=== PATIENT | female | born 1990 | race Caucasian/White ===

== ENCOUNTER 2017-04-04 17:47 | Emergency (ER) | payer OTHER ==
[~2017-04-04] VITALS: Ht 157.4 cm; Wt 90.7 kg
[~2017-04-04 17:47] MED LIST: 'PARAFON FORTE500 M1 PO; AMOXICILLIN500 MG PO; BACTRIM DS 8001 TA1 PO; BIRTH CONTROL1 EAC1 PO; BUSPAR15 MG PO; CENA K20 MEQ/15 PO; CHILD'S CHEW1 CTB PO; CLEOCIN150 MG PO; ELIMITE 5%60 GM PO; FLONASE 0.05% 121 EA NAS; HYDROCODONE BIT1 T11 PO; K-Dur 20MEQ20 MEQ PO; MACROBID100 M1 PO; MOTRIN800 MG PO; NAPROSYN500 MG PO; NKHM; PENICILLIN VK500 MG PO; PERCOCET 325 MG1 TA2 PO; PRENATAL1 TA1 PO; PRENATAL1 TA3 PO; PRILOSEC20 MG PO; PROTONIX40 M1 IV; PYRIDIUM200 MG PO; RECLIPSEN PO; TRAMADOL HCL50 MG PO; TYLENOL325 M1 PO; TYLENOL325 M2 PO; ULTRAM50 MG PO; VICODIN 5/500 505 MG PO; ZITHROMAX Z PA250 MG PO; ZOFRAN ODT4 MG SL; ZOFRAN4 MG PO; ZOFRAN8 MG PO
[2017-04-04 18:12] LABS: BILIRUBIN NEGATIVE (NEGATIVE); BLOOD NEGATIVE (NEGATIVE); CLARITY CLEAR (CLEAR); COLOR YELLOW (YELLOW); GLUCOSE NEGATIVE (NEGATIVE); KETONE NEGATIVE (NEGATIVE); LEUKO ESTERASE NEGATIVE (NEGATIVE); NITRITE NEGATIVE (NEGATIVE); PH 6.5 (5.0-9.0)
[2017-04-04] MEDS ORDERED: ZOFRAN4 MG PO (18:28)
[2017-04-04 18:29] LABS: BACTERIA TRACE; HYALINE CAST 0-2; RBC 0-2 rbc/hpf (0-2); WBC 0-2 wbc/hpf (0-5)
== END 2017-04-04 20:53 | disposition home or self-care (01) ==
LOC: ED 17:47
PROVIDERS: Nurse Practitioner Family
DX: N91.2 Amenorrhea, unspecified (principal); R11.0 Nausea; F17.200 Nicotine dependence, unspecified, uncomplicated; Z98.890 Other specified postprocedural states; Z79.899 Other long term (current) drug therapy

== ENCOUNTER 2017-08-21 00:13 | Emergency (ER) | payer OTHER ==
[~2017-08-21] VITALS: Ht 157.4 cm; Wt 86.2 kg
[2017-08-21 00:18] VITALS: BP 132/78
[2017-08-21 00:42] LABS: BILIRUBIN NEGATIVE (NEGATIVE); BLOOD NEGATIVE (NEGATIVE); CLARITY SL CLOUDY (CLEAR); COLOR YELLOW (YELLOW); GLUCOSE NEGATIVE (NEGATIVE); KETONE TRACE (NEGATIVE); LEUKO ESTERASE NEGATIVE (NEGATIVE); NITRITE NEGATIVE (NEGATIVE); SPECIFIC GRAVITY 1.025 (1.005-1.030)
[2017-08-21 00:50] LABS: BACTERIA 2+; WBC 0-2 wbc/hpf (0-5)
== END 2017-08-21 01:03 | disposition home or self-care (01) ==
LOC: ED 00:13
PROVIDERS: Emergency Medicine Emergency Medical Services
DX: N91.1 Secondary amenorrhea (principal); F17.200 Nicotine dependence, unspecified, uncomplicated; Z79.899 Other long term (current) drug therapy

== ENCOUNTER → 2017-08-22 | Outpatient (CLI) | payer OTHER | END | disposition home or self-care (01) | LOC: LAB 17:24 | DX: B59 Pneumocystosis (principal) ==

== ENCOUNTER 2018-08-25 17:39 | Emergency (ER) | payer SELFPAY ==
[~2018-08-25] VITALS: Ht 157.4 cm; Wt 88.5 kg
[2018-08-25] MEDS ORDERED: AMOXICILLIN500 M2 PO (17:48)
[2018-08-25] MEDS ORDERED: FLONASE ALLERG9.9 ML NAS (17:48)
== END 2018-08-25 17:50 | disposition home or self-care (01) ==
LOC: ED 17:39
DX: J01.90 Acute sinusitis, unspecified (principal); F17.210 Nicotine dependence, cigarettes, uncomplicated; Z98.890 Other specified postprocedural states; Z79.899 Other long term (current) drug therapy

== ENCOUNTER 2018-10-17 16:38 | Emergency (ER) | payer SELFPAY ==
[~2018-10-17] VITALS: Ht 157.4 cm; Wt 88.5 kg
[~2018-10-17 16:38] MED LIST changes: +AMOXICILLIN500 M2 PO; +FLONASE ALLERG9.9 ML NAS
== END 2018-10-17 17:30 | disposition home or self-care (01) ==
LOC: ED 16:38
DX: N91.1 Secondary amenorrhea (principal); F17.200 Nicotine dependence, unspecified, uncomplicated; Z32.01 Encounter for pregnancy test, result positive

== ENCOUNTER 2018-10-27 18:34 | Emergency (ER) | payer SELFPAY ==
[~2018-10-27] VITALS: Ht 157.4 cm; Wt 88.5 kg
[2018-10-27 20:23] LABS: BILIRUBIN 1+ (NEGATIVE); BLOOD NEGATIVE (NEGATIVE); CLARITY CLOUDY (CLEAR); COLOR YELLOW (YELLOW); GLUCOSE NEGATIVE (NEGATIVE); KETONE TRACE (NEGATIVE); LEUKO ESTERASE NEGATIVE (NEGATIVE); NITRITE NEGATIVE (NEGATIVE); SPECIFIC GRAVITY >= 1.030 (1.005-1.030)
[2018-10-27 20:31] LABS: BACTERIA 1+; EPITHELIAL CELLS 16-20; MUCOUS 2+
== END 2018-10-27 20:29 | disposition home or self-care (01) ==
LOC: ED 18:34
PROVIDERS: Nurse Practitioner Family
DX: O26.891 Other specified pregnancy related conditions, first trimester (principal); R10.9 Unspecified abdominal pain; F17.200 Nicotine dependence, unspecified, uncomplicated; Z3A.01 Less than 8 weeks gestation of pregnancy; Z79.899 Other long term (current) drug therapy; Z98.890 Other specified postprocedural states; Z90.49 Acquired absence of other specified parts of digestive tract

== ENCOUNTER → 2019-01-10 | Outpatient (CLI) | payer OTHER | END | disposition home or self-care (01) | LOC: US 06:29 | DX: Z34.82 Encounter for supervision of other normal pregnancy, second trimester (principal); Z3A.16 16 weeks gestation of pregnancy ==

== ENCOUNTER → 2019-02-07 | Outpatient (CLI) | payer OTHER | END | disposition home or self-care (01) | LOC: LAB 15:59 | DX: Z03.89 Encounter for observation for other suspected diseases and conditions ruled out (principal); Z83.2 Family history of diseases of the blood and blood-forming organs and certain disorders involving the immune mechanism ==

== ENCOUNTER 2019-02-13 20:54 | Emergency (ER) | payer OTHER ==
[~2019-02-13] VITALS: Ht 157.4 cm; Wt 97.5 kg
[2019-02-13 21:14] LABS: BILIRUBIN 1+ (NEGATIVE); BLOOD NEGATIVE (NEGATIVE); CLARITY SL CLOUDY (CLEAR); COLOR ORANGE (YELLOW); GLUCOSE NEGATIVE (NEGATIVE); KETONE TRACE (NEGATIVE); LEUKO ESTERASE NEGATIVE (NEGATIVE); NITRITE NEGATIVE (NEGATIVE); SPECIFIC GRAVITY >= 1.030 (1.005-1.030)
[2019-02-13 21:26] LABS: BACTERIA 2+; EPITHELIAL CELLS 21-30; MUCOUS 1+; WBC 0-2 wbc/hpf (0-5)
== END 2019-02-13 22:20 | disposition home or self-care (01) ==
LOC: ED 20:54
PROVIDERS: Student in an Organized Health Care Education/Training Program
DX: O23.42 Unspecified infection of urinary tract in pregnancy, second trimester (principal); O20.0 Threatened abortion; Z3A.20 20 weeks gestation of pregnancy; Z79.899 Other long term (current) drug therapy; Z87.440 Personal history of urinary (tract) infections; Z87.442 Personal history of urinary calculi; Z90.49 Acquired absence of other specified parts of digestive tract; Z98.890 Other specified postprocedural states

== ENCOUNTER 2019-03-30 19:35 | Emergency (ER) | payer OTHER ==
[~2019-03-30] VITALS: Ht 157.4 cm; Wt 106.1 kg
[2019-03-30 20:06] LABS: BILIRUBIN 1+ (NEGATIVE); BLOOD NEGATIVE (NEGATIVE); CLARITY SL CLOUDY (CLEAR); COLOR YELLOW (YELLOW); GLUCOSE NEGATIVE (NEGATIVE); KETONE TRACE (NEGATIVE); LEUKO ESTERASE NEGATIVE (NEGATIVE); NITRITE NEGATIVE (NEGATIVE); PH 6.5 (5.0-9.0); SPECIFIC GRAVITY 1.025 (1.005-1.030)
[2019-03-30 20:15] LABS: BACTERIA 2+
[2019-03-30] MEDS ORDERED: AMOXICILLIN500 M2 PO (20:23)
[2019-03-30] MEDS ORDERED: ZYRTEC10 MG PO (20:23)
== END 2019-03-30 20:54 | disposition home or self-care (01) ==
LOC: ED 19:35
PROVIDERS: Nurse Practitioner Family
DX: O99.512 Diseases of the respiratory system complicating pregnancy, second trimester (principal); J01.90 Acute sinusitis, unspecified; Z3A.27 27 weeks gestation of pregnancy; Z79.899 Other long term (current) drug therapy

== ENCOUNTER → 2019-05-09 | Outpatient (CLI) | payer OTHER ==
[~2019-05-09] MED LIST changes: +ZYRTEC10 MG PO
== END | disposition home or self-care (01) ==
LOC: US 09:58
DX: Z34.83 Encounter for supervision of other normal pregnancy, third trimester (principal); Z3A.33 33 weeks gestation of pregnancy

== ENCOUNTER → 2019-05-18 | Outpatient (CLI) | payer OTHER | END | disposition home or self-care (01) | LOC: US 11:59 | DX: O99.810 Abnormal glucose complicating pregnancy (principal); Z3A.33 33 weeks gestation of pregnancy ==

== ENCOUNTER 2019-05-22 20:09 | Emergency (ER) | payer OTHER ==
[~2019-05-22] VITALS: Ht 157.4 cm; Wt 99.8 kg
== END 2019-05-22 21:00 | disposition home or self-care (01) ==
LOC: ED 20:09
DX: O41.93X0 Disorder of amniotic fluid and membranes, unspecified, third trimester, not applicable or unspecified (principal); Z3A.34 34 weeks gestation of pregnancy; Z79.2 Long term (current) use of antibiotics; Z79.899 Other long term (current) drug therapy; Z90.49 Acquired absence of other specified parts of digestive tract

== ENCOUNTER → 2019-05-25 | Outpatient (CLI) | payer OTHER | END | disposition home or self-care (01) | LOC: US 12:54 | DX: O99.810 Abnormal glucose complicating pregnancy (principal); Z3A.35 35 weeks gestation of pregnancy ==

== ENCOUNTER → 2019-05-30 | Outpatient (CLI) | payer OTHER | END | disposition home or self-care (01) | LOC: US 16:54 | DX: O24.419 Gestational diabetes mellitus in pregnancy, unspecified control (principal); Z3A.36 36 weeks gestation of pregnancy ==

== ENCOUNTER → 2019-06-06 | Outpatient (CLI) | payer OTHER | END | disposition home or self-care (01) | LOC: US 09:24 | DX: Z34.93 Encounter for supervision of normal pregnancy, unspecified, third trimester (principal); Z3A.37 37 weeks gestation of pregnancy ==

== ENCOUNTER → 2019-06-13 | Outpatient (CLI) | payer OTHER | END | disposition home or self-care (01) | LOC: US 10:09 | DX: O24.410 Gestational diabetes mellitus in pregnancy, diet controlled (principal); Z3A.37 37 weeks gestation of pregnancy ==

== ENCOUNTER → 2019-06-20 | Outpatient (CLI) | payer OTHER | END | disposition home or self-care (01) | LOC: US 09:22 | DX: Z34.93 Encounter for supervision of normal pregnancy, unspecified, third trimester (principal); Z3A.39 39 weeks gestation of pregnancy ==

== ENCOUNTER → 2019-06-23 | Outpatient (CLI) | payer OTHER | END | disposition home or self-care (01) | LOC: US 09:51 | DX: Z34.93 Encounter for supervision of normal pregnancy, unspecified, third trimester (principal); Z3A.39 39 weeks gestation of pregnancy ==

== ENCOUNTER 2019-07-24 03:37 | Emergency (ER) | payer OTHER ==
[~2019-07-24] VITALS: Ht 157.4 cm; Wt 107.0 kg
[2019-07-24] MEDS ORDERED: DIFLUCAN150 MG PO (04:05)
[2019-07-24] MEDS ORDERED: KEFLEX500 M1 PO (04:05)
== END 2019-07-24 04:37 | disposition home or self-care (01) ==
LOC: ED 03:37
DX: O86.00 Infection of obstetric surgical wound, unspecified (principal); Z90.49 Acquired absence of other specified parts of digestive tract; Z87.442 Personal history of urinary calculi; Z79.2 Long term (current) use of antibiotics; Z79.899 Other long term (current) drug therapy

== ENCOUNTER 2020-10-26 14:36 | Emergency (ER) | payer SELFPAY ==
[~2020-10-26] VITALS: Ht 157.4 cm; Wt 99.8 kg
[~2020-10-26 14:36] MED LIST changes: +DIFLUCAN150 MG PO; +KEFLEX500 M1 PO
[2020-10-26] MEDS ORDERED: FLONASE ALLERG9.9 ML NAS (16:20)
[2020-10-26] MEDS ORDERED: AMOXICILLIN500 M2 PO (16:20)
== END 2020-10-26 16:43 | disposition home or self-care (01) ==
LOC: ED 14:36
DX: J02.9 Acute pharyngitis, unspecified (principal); H66.93 Otitis media, unspecified, bilateral; Z79.899 Other long term (current) drug therapy; Z98.890 Other specified postprocedural states

== ENCOUNTER 2021-09-10 12:49 | Emergency (ER) | payer SELFPAY ==
[~2021-09-10] VITALS: Ht 157.4 cm; Wt 95.3 kg
[2021-09-10] MEDS ORDERED: ZYRTEC10 M2 PO (13:52)
[2021-09-10] MEDS ORDERED: FLONASE ALLERG9.9 ML NAS (13:52)
== END 2021-09-10 13:55 | disposition home or self-care (01) ==
LOC: ED 12:49
DX: B34.9 Viral infection, unspecified (principal); Z79.899 Other long term (current) drug therapy; Z98.890 Other specified postprocedural states; Z90.89 Acquired absence of other organs

== ENCOUNTER 2022-06-13 11:26 | Emergency (ER) | payer SELFPAY ==
[~2022-06-13] VITALS: Ht 157.4 cm; Wt 97.5 kg
[~2022-06-13 11:26] MED LIST changes: +ZYRTEC10 M2 PO
[2022-06-13] MEDS ORDERED: PAXLOVID 300-11 EAC2 PO (12:48)
== END 2022-06-13 13:44 | disposition home or self-care (01) ==
LOC: ED 11:26
DX: U07.1 COVID-19 (principal); Z79.899 Other long term (current) drug therapy; Z98.890 Other specified postprocedural states; Z90.89 Acquired absence of other organs

== ENCOUNTER 2022-12-02 21:13 | Emergency (ER) | payer OTHER ==
[~2022-12-02] VITALS: Ht 157.4 cm; Wt 95.3 kg
[~2022-12-02 21:13] MED LIST changes: +PAXLOVID 300-11 EAC2 PO
[2022-12-02 21:30] LABS: BILIRUBIN Negative (Negative); BLOOD Negative (Negative); CLARITY Clear (Clear); COLOR Yellow (Yellow); GLUCOSE Negative (Negative); KETONE Trace (Negative); LEUKO ESTERASE Negative (Negative); NITRITE Negative (Negative); PH 5.5 (4.5-8.0); SPECIFIC GRAVITY >= 1.030 (1.001-1.030)
[2022-12-02 21:35] LABS: BACTERIA 2+; MUCOUS 3+
== END 2022-12-02 22:50 | disposition home or self-care (01) ==
LOC: ED 21:13
PROVIDERS: Internal Medicine
DX: R11.0 Nausea (principal); Z98.890 Other specified postprocedural states; Z79.899 Other long term (current) drug therapy

== ENCOUNTER 2023-03-16 17:31 | Emergency (ER) | payer OTHER ==
[~2023-03-16] VITALS: Ht 157.4 cm; Wt 97.5 kg
[2023-03-16] MEDS ORDERED: CIPRO500 MG PO (17:59)
[2023-03-16 18:32] LABS: BILIRUBIN Negative (Negative); BLOOD 3+ (Negative); CLARITY Turbid (Clear); COLOR Orange (Yellow); GLUCOSE Negative (Negative); KETONE Negative (Negative); LEUKO ESTERASE 3+ (Negative); NITRITE Negative (Negative); PH 6.5 (4.5-8.0)
[2023-03-16 18:55] LABS: BACTERIA 2+; RBC TNTC rbc/hpf (0-2); WBC TNTC wbc/hpf (0-5)
[2023-03-16] MEDS ORDERED: SEPTDS PO ×2 (23:53)
[2023-03-17] MEDS ORDERED: PREDNISONE10 M1 PO (00:21)
== END 2023-03-16 18:20 | disposition home or self-care (01) ==
LOC: ED 17:31
PROVIDERS: Emergency Medicine
DX: N39.0 Urinary tract infection, site not specified (principal); Z79.899 Other long term (current) drug therapy; Z98.890 Other specified postprocedural states

== ENCOUNTER 2023-03-16 23:46 | Emergency (ER) | payer OTHER ==
[~2023-03-16 23:46] MED LIST changes: +CIPRO500 MG PO
[2023-03-16] MEDS ORDERED: SEPTDS PO ×2 (23:53)
[2023-03-17] MEDS ORDERED: PREDNISONE10 M1 PO (00:21)
== END 2023-03-17 00:29 | disposition home or self-care (01) ==
LOC: ED 23:46
DX: L29.9 Pruritus, unspecified (principal); T36.8X5A Adverse effect of other systemic antibiotics, initial encounter; Z98.890 Other specified postprocedural states; Y92.89 Other specified places as the place of occurrence of the external cause

== ENCOUNTER 2023-07-06 16:37 | Emergency (ER) | payer OTHER ==
[~2023-07-06] VITALS: Ht 157.4 cm; Wt 99.8 kg
[~2023-07-06 16:37] MED LIST changes: +PREDNISONE10 M1 PO; +SEPTDS PO
[2023-07-06 18:14] LABS: BILIRUBIN Negative (Negative); BLOOD 3+ (Negative); CLARITY Turbid (Clear); COLOR Orange (Yellow); GLUCOSE Negative (Negative); KETONE Negative (Negative); LEUKO ESTERASE 3+ (Negative); NITRITE Negative (Negative); SPECIFIC GRAVITY 1.025 (1.001-1.030)
[2023-07-06 18:29] LABS: PH >= 9.0 (4.5-8.0)
[2023-07-06 18:31] LABS: BACTERIA 1+; EPITHELIAL CELLS TNTC; RBC TNTC rbc/hpf (0-2); WBC TNTC wbc/hpf (0-5)
[2023-07-06] MEDS ORDERED: SEPTDS PO (19:37)
== END 2023-07-06 19:37 | disposition home or self-care (01) ==
LOC: ED 16:37
PROVIDERS: Emergency Medicine
DX: N39.0 Urinary tract infection, site not specified (principal); Z88.1 Allergy status to other antibiotic agents; Z98.890 Other specified postprocedural states; Z87.891 Personal history of nicotine dependence

== ENCOUNTER 2023-09-24 11:58 | Emergency (ER) | payer OTHER ==
[2023-09-24] MEDS ORDERED: Motrin,Rufen800 MG PO (12:32)
[2023-09-24] MEDS ORDERED: CYCLOBENZAPRINE10 MG PO (12:32)
== END 2023-09-24 12:44 | disposition home or self-care (01) ==
LOC: ED 11:58
DX: S66.911A Strain of unspecified muscle, fascia and tendon at wrist and hand level, right hand, initial encounter (principal); Z88.1 Allergy status to other antibiotic agents; Z90.49 Acquired absence of other specified parts of digestive tract; Z98.890 Other specified postprocedural states; X50.0XXA Overexertion from strenuous movement or load, initial encounter; Y93.89 Activity, other specified; Y92.129 Unspecified place in nursing home as the place of occurrence of the external cause; Y99.0 Civilian activity done for income or pay

== ENCOUNTER 2024-01-01 20:50 | Emergency (ER) | payer OTHER ==
[~2024-01-01] VITALS: Wt 104.3 kg
[~2024-01-01 20:50] MED LIST changes: +CYCLOBENZAPRINE10 MG PO; +Motrin,Rufen800 MG PO
[2024-01-01] MEDS ORDERED: Acetaminophen/Oxycodone 5 MG/325 MG TABLET PO ONE (21:10)
[2024-01-01] MEDS ORDERED: MELOXICAM15 MG PO (22:57)
== END 2024-01-01 23:04 | disposition home or self-care (01) ==
LOC: ED 20:50
DX: S93.402A Sprain of unspecified ligament of left ankle, initial encounter (principal); Z88.1 Allergy status to other antibiotic agents; Z90.49 Acquired absence of other specified parts of digestive tract; Z98.890 Other specified postprocedural states; X58.XXXA Exposure to other specified factors, initial encounter; Y93.89 Activity, other specified; Y92.89 Other specified places as the place of occurrence of the external cause; Y99.8 Other external cause status

== ENCOUNTER 2024-01-12 19:49 | Emergency (ER) | payer OTHER ==
[~2024-01-12] VITALS: Ht 157.4 cm; Wt 104.3 kg
[~2024-01-12 19:49] MED LIST changes: +MELOXICAM15 MG PO
[2024-01-12] MEDS ORDERED: Bacitracin Zinc 14 GM TUBE T ONE (20:15)
== END 2024-01-12 20:21 | disposition home or self-care (01) ==
LOC: ED 19:49
DX: L01.00 Impetigo, unspecified (principal); Z88.1 Allergy status to other antibiotic agents; Z90.49 Acquired absence of other specified parts of digestive tract; Z98.890 Other specified postprocedural states

== ENCOUNTER 2024-08-24 14:37 | Emergency (ER) | payer OTHER ==
[~2024-08-24] VITALS: Ht 157.4 cm; Wt 104.3 kg
[2024-08-24] MEDS ORDERED: IBUPROFEN 400 MG TAB PO ONE (14:45)
[2024-08-24] MEDS ORDERED: LEVOFLOXACIN750 M2 PO (16:27)
== END 2024-08-24 16:30 | disposition home or self-care (01) ==
LOC: ED 14:37
DX: J18.9 Pneumonia, unspecified organism (principal); Z20.822 Contact with and (suspected) exposure to COVID-19; F17.210 Nicotine dependence, cigarettes, uncomplicated; Z88.1 Allergy status to other antibiotic agents; Z98.890 Other specified postprocedural states; Z90.49 Acquired absence of other specified parts of digestive tract

== ENCOUNTER 2025-05-08 05:36 | Emergency (ER) | payer OTHER ==
[~2025-05-08] VITALS: Wt 106.6 kg
[~2025-05-08 05:36] MED LIST changes: +LEVOFLOXACIN750 M2 PO
== END 2025-05-08 06:03 | disposition left against medical advice (07) ==
LOC: ED 05:36
DX: Z20.818 Contact with and (suspected) exposure to other bacterial communicable diseases (principal); Z53.29 Procedure and treatment not carried out because of patient's decision for other reasons; Z98.890 Other specified postprocedural states; Z88.1 Allergy status to other antibiotic agents